=== PATIENT | male | born 1980 | race Hispanic/Latino ===

== ENCOUNTER 2020-02-29 18:23 | Emergency (ER) | payer SELFPAY ==
--- NOTE | 2020-02-29 18:49 | RAD ---
EXAM: 3 views of the right foot HISTORY: Right foot pain COMPARISON: None FINDINGS: 3 views of the right foot shows fractures of the proximal aspect of the second and third me tatarsals. No dislocation is seen. Surrounding soft tissue swelling is seen. IMPRESSION: Second and third metatarsal fractures
== END 2020-02-29 19:51 | disposition home or self-care (01) ==
LOC: ERS 18:23
DX: S92.321A Displaced fracture of second metatarsal bone, right foot, initial encounter for closed fracture (principal); S92.331A Displaced fracture of third metatarsal bone, right foot, initial encounter for closed fracture; V87.8XXA Person injured in other specified noncollision transport accidents involving motor vehicle (traffic), initial encounter